=== PATIENT | male | born 1975 | race Caucasian/White ===

== ENCOUNTER 2023-03-09 03:23 | Emergency (ER) | payer OTHER, SELFPAY ==
[2023-03-09 03:25] VITALS: BP 205/130
--- NOTE | 2023-03-09 05:51 | ED.GENMED ---
History of Present Illness
General
Chief Complaint: Eye Problems
Source: patient
Exam Limitations: none
Time Seen by Provider: 03/09/23 05:23
Nursing documentation reviewed up to this point in time: agreed with
Travel History
Have you had any contact with someone who has COVID-19?: No
Do you have any symptoms of coronavirus? Fever > 100 degrees, chills, cough, shortness of breath, sore throat, loss of taste or smell, muscle aches, or headache?: No
History of Present Illness
History of Present Illness:
47-year-old male with history of hypertension, paw-nidkecd-afagwcfsy diabetes, GERD complains of right eye pain, foreign body sensation, tearing that woke him from sleep tonight. He does wear contact lenses, extended wear and put his contacts in
yesterday afternoon without specific incident. He denies vision difficulty, denies headache, denies nausea or vomiting. Does admit to a similar episode of eye pain, tearing several years ago related to 'scratch on his cornea'
Right eye pain is worse with blinking, improves if he keeps his eyes closed.
Past History
Past History
ED Past Medical History: HTN, Hypercholesterolemia, NIDDM and Other (Psoriatic arthritis)
ED Past Surgical History: Tonsilectomy
Social History
Tobacco: Smoker
Alcohol: Occasional
Drug: None
Personal:
Living: with family
Employment: Employed
Family History
Family History: Hypertension
Phy Exam
Physical Exam
Physical Exam:
GENERAL: 47-year-old gentleman appears his stated age, awake and alert, appears in mild distress, frequently dabbing at his right eye. is accompanying.
EYE: pupils equal and reactive. Extraocular muscles intact. The right eye has moderate clear drainage, mild to moderate conjunctival injection without chemosis. Visual acuity grossly intact bilaterally. Anicteric. Significant relief of right
eye discomfort after tetracaine instilled. Right eye examined with fluorescein stain and Angel lamp to reveal hazy fluorescein uptake globally over the cornea with increased uptake along the superior edge of the cornea. There is no foreign body.
Anterior chamber is clear.
NECK: Supple, nontender, no meningismus, no significant adenopathy.
ENT: Oral mucosa is moist. Mild clear rhinorrhea.
CARDIAC: Regular rate and rhythm. no murmur.
LUNGS: Clear breath sounds bilaterally, no acute respiratory distress, no wheezes/rales/rhonchi
NEUROLOGICAL: Alert and oriented x3, no focal neuro deficits. Gait is becker and steady.
SKIN: Warm and dry, normal color, skin intact. No rash.
MUSCULOSKELETAL: No C/C/E. peripheral pulses are full and equal b/l. No palpable tenderness.
PSYCH: Normal and appropriate interaction.
Course
Orders/Labs/Results
Orders:
Orders
03/09/23 05:17
Tetracaine HCl [Tetracaine 0.5% Ophthalmic Solution] 1 drop .ROUTE .STK-MED ONE
03/09/23 05:49
Gentamicin [Genoptic 0.3% Eye Drops] See Dose Instructions OPHTH NOW STA
03/09/23 05:50
Tetracaine HCl [Tetracaine 0.5% Ophthalmic Solution] See Dose Instructions OPHTH ONCE ONE
Vital Signs
Initial and Last Documented VS:
Initial Vital Signs
Temp Pulse Resp BP Pulse Ox
97.4 F 96 22 205/130 96
03/09/23 03:25 03/09/23 03:25 03/09/23 03:25 03/09/23 03:25 03/09/23 03:25
Last Documented Vital Signs
Temp Pulse Resp BP Pulse Ox
97.4 F 96 22 170/85 96
03/09/23 03:25 03/09/23 03:25 03/09/23 03:25 03/09/23 06:17 03/09/23 03:25
MDM/Problems Addressed
Differential Diagnosis Includes:
Patient presents with right eye pain, foreign body sensation, tearing that woke him from sleep. He was able to take his contact out, symptoms persist, have worsened since taking his contacts out.
Exam reveals moderate fluorescein stain uptake globally about the cornea, more so superiorly and patient does admit to frequently rubbing his eyes.
History and exam consistent with global corneal abrasion.
Will treat with a course of gentamicin ophthalmic drops and he has been provided with tetracaine drops to use 3-4 times a day over the next 2 days.
He has been cautioned to avoid rubbing his eyes, he may dab lightly.
Will refer to ophthalmology for further evaluation.
Moderate hypertension noted initially. With relief of eye pain after tetracaine instilled, hypertension has improved.
Chronic conditions affecting care: HTN
*Pulse Oximetry
Patient hypoxic: no
*Critical Care Note
Total Time (30-74mins, 75-104mins- exclusive of procedures): Not Applicable
ED Attending Note
-
Portions of this chart may have been created with voice recognition software.� Occasional wrong word or��sound alike� substitutions may have occurred due to the inherent limitations of voice recognition software.
Discharge Plan
Departure
Patient Disposition: Home (Routine Discharge)
Date of Disposition: 03/09/23
Time of Disposition: 05:51
Patient with high blood pressure during this ER visit?: No
Discharge Problem:
Corneal abrasion of right eye due to contact lens
Instructions: Corneal Abrasion (DC), How to Use Eye Drops
Prescriptions:
New
gentamicin 0.3 % drops
1 drp ophthalmic (eye) QID Qty: 5 0RF
tetracaine HCl 0.5 % drops
1 drp ophthalmic (eye) QIDPRN PRN (Reason: eye pain) Qty: 5 0RF
No Action
venlafaxine 75 MG capsule,extended release 24hr
75 mg PO DAILY
Patient Comments:
225mg total
diltiazem HCl 240 MG capsule,extended release 24hr
240 mg PO DAILY
lisinopril 20 MG tablet
40 mg PO DAILY
venlafaxine [Effexor XR] 150 MG capsule,extended release 24hr
150 mg PO DAILY
Patient Comments:
total 225mg
trazodone 100 MG tablet
100 mg PO HS
magnesium 250 MG tablet
250 mg PO DAILY
hydrochlorothiazide 25 MG tablet
25 mg PO DAILY
metformin 500 MG tablet extended release 24 hr
1,000 mg PO HS
glycopyrrolate 2 MG tablet
2 mg PO HS
glycopyrrolate 2 MG tablet
4 mg PO DAILY
brexpiprazole [Rexulti] 0.25 MG tablet
0.25 mg PO DAILY
glycopyrronium tosylate [Qbrexza] 1 EACH towelette
1 ea topical BID
Referrals:
Saleem Menchaca CRNP [Family Provider] -
Vidal Hartmann MD [Active] - Call in 1-3 days for appt
Interventions
Interventions:
*Risk Screen - Suicide Last Done: 03/09/23 03:27
*General Assessment Last Done: 03/09/23 06:43
*Neglect/Abuse Screening Last Done: 03/09/23 03:27
ED- Fall Risk Assessment Last Done: 03/09/23 04:05
*ED COVID-19 Vaccine History Last Done: 03/09/23 06:43
*Nursing Disposition Last Done: 03/09/23 06:43
Discharge Date and Time
Discharge Date/Time: 03/09/23 06:43
[2023-03-09] MEDS: GENOPTIC 0.3% EYE DROPS 1 DROP OPHTH (06:12)
[2023-03-09 06:17] VITALS: BP 170/85
== END 2023-03-09 06:43 | disposition home or self-care (01) ==
LOC: EMR 03:23
PROVIDERS: EMERGENCY PHYSICIAN Emergency Medicine; FAMILY PHYSICIAN Nurse Practitioner Family
DX: H18.821 Corneal disorder due to contact lens, right eye (principal); I10 Essential (primary) hypertension; E11.9 Type 2 diabetes mellitus without complications; K21.9 Gastro-esophageal reflux disease without esophagitis; E78.00 Pure hypercholesterolemia, unspecified; F17.200 Nicotine dependence, unspecified, uncomplicated; Z82.49 Family history of ischemic heart disease and other diseases of the circulatory system
CPT/HCPCS: 99282

== ENCOUNTER → 2023-12-08 06:59 | Outpatient (REF) | payer OTHER, SELFPAY ==
[2023-12-08 09:03] LABS: Hematocrit 38.2 % (39.0-52.0); Hemoglobin 13.4 g/dL (13.0-18.0); Mean Corp Hgb Conc. 35.1 g/dL (33.0-37.0); Mean Corpuscular Hgb 30.3 pg (27.0-31.0); Mean Corpuscular Volume 86.4 fL (80.0-94.0); Mean Platelet Volume 10.2 fL (7.4-10.4); Platelet Count 228 10^3/uL (130-400); Red Blood Cell Count 4.42 10^6/uL (4.70-6.10); Red Cell Dist. Width 12.5 % (11.5-14.5); White Blood Cell Count 6.4 10^3/uL (4.8-10.8)
[2023-12-08 09:46] LABS: Protein/creatinine Ratio 0.1; Urine Protein 10 mg/dl
[2023-12-08 09:53] LABS: Microalbumin, Random Urine 3.6 mg/dl (0.6-1.7); Microalbumin/creatinine Ratio 52.2 mg/g
[2023-12-08 09:54] LABS: ALT (SGPT) 34 U/L (0-50); AST (SGOT) 27 U/L (17-59); Albumin 4.2 g/dl (3.5-5.0); Alkaline Phosphatase 71 U/L (38-126); Blood Urea Nitrogen 14 mg/dl (9-20); Calcium 9.5 mg/dl (8.4-10.2); Carbon Dioxide 27 mmol/L (22-30); Chloride 101 mmol/L (98-107); Glucose 159 mg/dl (70-99); HDL Cholesterol 71 mg/dl; LDL Cholesterol, Calculated 72 mg/dl; Potassium 4.8 mmol/L (3.5-5.1); Sodium 138 mmol/L (135-145); Total Bilirubin 0.8 mg/dl (0.2-1.3); Total Cholesterol 175 mg/dl (50-199); Total Protein 6.6 g/dl (6.3-8.2); Triglyceride 162 mg/dl (10-149); Very Low Density Lipoprotein 32 mg/dl (0-30); eGFR > 60.00
[2023-12-08 10:00] LABS: Glycohemoglobin (HgbA1c) 6.9 % (4.0-5.6)
== END ==
LOC: HWLAB 06:59
PROVIDERS: ATTENDING PHYSICIAN Physician Assistant; FAMILY PHYSICIAN Nurse Practitioner Family
DX: E11.9 Type 2 diabetes mellitus without complications (principal)
CPT/HCPCS: 36415; 80053; 80061; 82043; 82570; 83036; 84156; 85027

== ENCOUNTER → 2023-12-31 16:41 | Outpatient (REF) | payer OTHER, SELFPAY | LOC: HWRAD 16:41 | PROVIDERS: ATTENDING PHYSICIAN Nurse Practitioner Family | DX: M54.50 Low back pain, unspecified (principal) | CPT/HCPCS: 72110 ==

== ENCOUNTER → 2024-03-14 08:20 | Outpatient (REF) | payer OTHER, SELFPAY ==
[2024-03-14 11:23] LABS: % Basophils 0.8 % (0-2); % Eosinophils 1.5 % (0-6); % Immature Granulocytes 0.8 % (0-0.5); % Lymphocytes 23.9 % (20.5-51.1); % Monocytes 6.1 % (1.7-9.3); % Neutrophils 66.9 % (42.2-75.2); Absolute Basophils 0.1 10^3/uL (0-0.2); Absolute Eosinophils 0.1 10^3/uL (0-0.7); Absolute Immature Granulocytes 0.1 10^3/uL (0-0.05); Absolute Lymphocytes 2.1 10^3/uL (1.2-3.4); Absolute Monocytes 0.5 10^3/uL (0.1-0.6); Hematocrit 41.4 % (39.0-52.0); Hemoglobin 14.1 g/dL (13.0-18.0); Mean Corp Hgb Conc. 34.1 g/dL (33.0-37.0); Mean Corpuscular Hgb 31.4 pg (27.0-31.0); Mean Corpuscular Volume 92.2 fL (80.0-94.0); Mean Platelet Volume 9.7 fL (7.4-10.4); Nucleated Red Blood Cells % 0 % (-); Platelet Count 299 10^3/uL (130-400); Red Blood Cell Count 4.49 10^6/uL (4.70-6.10); Red Cell Dist. Width 12.8 % (11.5-14.5); White Blood Cell Count 8.9 10^3/uL (4.8-10.8)
[2024-03-14 12:01] LABS: ALT (SGPT) 32 U/L (0-50); AST (SGOT) 24 U/L (17-59); Albumin 4.6 g/dl (3.5-5.0); Alkaline Phosphatase 66 U/L (38-126); Blood Urea Nitrogen 16 mg/dl (9-20); Calcium 9.4 mg/dl (8.4-10.2); Carbon Dioxide 21 mmol/L (22-30); Chloride 103 mmol/L (98-107); Glucose 156 mg/dl (70-99); Potassium 4.7 mmol/L (3.5-5.1); Sodium 132 mmol/L (135-145); Total Bilirubin 0.6 mg/dl (0.2-1.3); Total Protein 6.7 g/dl (6.3-8.2); eGFR > 60.00
[2024-03-14 12:04] LABS: Erythrocyte Sed Rate 4 mm/hour (0-20)
[2024-03-14 13:16] LABS: C-Reactive Protein < 5.00 mg/L (0.0-10.00)
== END ==
LOC: HWLAB 08:20
PROVIDERS: ATTENDING PHYSICIAN Internal Medicine Rheumatology; FAMILY PHYSICIAN Nurse Practitioner Family
DX: L40.50 Arthropathic psoriasis, unspecified (principal)
CPT/HCPCS: 36415; 80053; 85025; 85652; 86140

== ENCOUNTER → 2024-03-15 10:01 | Outpatient (REF) | payer OTHER, SELFPAY | LOC: HWRAD 10:01 | PROVIDERS: ATTENDING PHYSICIAN Nurse Practitioner Family | DX: R05.9 Cough, unspecified (principal) | CPT/HCPCS: 71046 ==

== ENCOUNTER → 2024-04-08 10:03 | Outpatient (REF) | payer OTHER, SELFPAY ==
[2024-04-08 12:00] LABS: Hemoglobin 14.5 g/dL (13.0-18.0); Mean Corp Hgb Conc. 34.5 g/dL (33.0-37.0); Mean Corpuscular Hgb 31.5 pg (27.0-31.0); Mean Corpuscular Volume 91.1 fL (80.0-94.0); Mean Platelet Volume 9.9 fL (7.4-10.4); Platelet Count 291 10^3/uL (130-400); Red Blood Cell Count 4.61 10^6/uL (4.70-6.10); Red Cell Dist. Width 12.5 % (11.5-14.5); White Blood Cell Count 13.1 10^3/uL (4.8-10.8)
[2024-04-08 12:22] LABS: ALT (SGPT) 35 U/L (0-50); AST (SGOT) 21 U/L (17-59); Albumin 4.4 g/dl (3.5-5.0); Alkaline Phosphatase 80 U/L (38-126); Blood Urea Nitrogen 19 mg/dl (9-20); Calcium 10.5 mg/dl (8.4-10.2); Carbon Dioxide 22 mmol/L (22-30); Chloride 101 mmol/L (98-107); Glucose 206 mg/dl (70-99); Potassium 4.8 mmol/L (3.5-5.1); Sodium 136 mmol/L (135-145); Total Bilirubin 0.3 mg/dl (0.2-1.3); Total Protein 6.8 g/dl (6.3-8.2); eGFR > 60.00
== END ==
LOC: HWLAB 10:03
PROVIDERS: ATTENDING PHYSICIAN Physician Assistant; FAMILY PHYSICIAN Nurse Practitioner Family
DX: E11.65 Type 2 diabetes mellitus with hyperglycemia (principal)
CPT/HCPCS: 36415; 80053; 83036; 85027

== ENCOUNTER → 2024-10-06 06:26 | Outpatient (REF) | payer OTHER, SELFPAY ==
[2024-10-06 09:40] LABS: Hematocrit 41.1 % (39.0-52.0); Hemoglobin 14.2 g/dL (13.0-18.0); Mean Corp Hgb Conc. 34.5 g/dL (33.0-37.0); Mean Corpuscular Volume 91.3 fL (80.0-94.0); Nucleated Red Blood Cells % 0 % (-); Platelet Count 242 10^3/uL (130-400); Red Cell Dist. Width 13.0 % (11.5-14.5)
[2024-10-06 10:04] LABS: ALT (SGPT) 27 U/L (0-50); AST (SGOT) 23 U/L (17-59); Albumin 4.6 g/dl (3.5-5.0); Alkaline Phosphatase 67 U/L (38-126); Blood Urea Nitrogen 14 mg/dl (9-20); Calcium 10.1 mg/dl (8.4-10.2); Carbon Dioxide 24 mmol/L (22-30); Chloride 106 mmol/L (98-107); Glucose 127 mg/dl (70-99); Potassium 4.3 mmol/L (3.5-5.1); Sodium 139 mmol/L (135-145); Total Protein 6.9 g/dl (6.3-8.2); eGFR > 60.00
[2024-10-06 10:37] LABS: C-Reactive Protein < 5.00 mg/L (0.0-10.00)
== END ==
LOC: HWLAB 06:26
PROVIDERS: ATTENDING PHYSICIAN Physician Assistant; FAMILY PHYSICIAN Nurse Practitioner Family
DX: L40.50 Arthropathic psoriasis, unspecified (principal); Z79.899 Other long term (current) drug therapy
CPT/HCPCS: 36415; 80053; 85025; 85652; 86140

== ENCOUNTER → 2024-12-30 06:10 | Outpatient (REF) | payer OTHER, SELFPAY ==
[2024-12-30 10:07] LABS: Hematocrit 44.1 % (39.0-52.0); Hemoglobin 14.8 g/dL (13.0-18.0); Mean Corp Hgb Conc. 33.6 g/dL (33.0-37.0); Mean Corpuscular Volume 92.1 fL (80.0-94.0); Nucleated Red Blood Cells % 0 % (-); Platelet Count 280 10^3/uL (130-400); Red Cell Dist. Width 12.9 % (11.5-14.5)
[2024-12-30 10:15] LABS: Urine Character Clear (Clear)
[2024-12-30 10:29] LABS: ALT (SGPT) 20 U/L (0-50); AST (SGOT) 17 U/L (17-59); Albumin 4.5 g/dl (3.5-5.0); Alkaline Phosphatase 74 U/L (38-126); Blood Urea Nitrogen 13 mg/dl (9-20); Calcium 9.8 mg/dl (8.4-10.2); Carbon Dioxide 25 mmol/L (22-30); Chloride 103 mmol/L (98-107); Glucose 105 mg/dl (70-99); HDL Cholesterol 61 mg/dl; LDL Cholesterol, Calculated 62 mg/dl; Potassium 4.5 mmol/L (3.5-5.1); Sodium 136 mmol/L (135-145); Total Protein 7.1 g/dl (6.3-8.2); Very Low Density Lipoprotein 18 mg/dl (0-30); eGFR > 60.00
[2024-12-30 10:49] LABS: Urine Red Blood Cell 0-2 /HPF (0-2); Urine White Cell 0-2 /HPF (0-5)
[2024-12-30 10:52] LABS: PSA, Total - Diagnostic 0.38 ng/ml (0.0-4.0)
[2024-12-30 11:09] LABS: Vitamin B12 701 pg/ml (239-931)
[2024-12-30 16:34] LABS: Syphilis/T. pallidum Ab Reflex Negative (Negative)
== END ==
LOC: HWLAB 06:10
PROVIDERS: ATTENDING PHYSICIAN Nurse Practitioner Family
DX: R39.198 Other difficulties with micturition (principal); N52.9 Male erectile dysfunction, unspecified; R41.3 Other amnesia; R29.818 Other symptoms and signs involving the nervous system
CPT/HCPCS: 36415; 80053; 80061; 81003; 81015; 82607; 84153; 84443; 85025; 86780